=== PATIENT | female | born 2000 | race Caucasian/White ===

== ENCOUNTER 2020-06-24 10:39 | Outpatient (CLI) | payer OTHER, SELFPAY ==
--- NOTE | 2020-06-24 10:52 | CT_ITS ---
WS: [id number] CT scan of the abdomen and pelvis with Oral and IV contrast. Additional two-dimensional coronal and s agittal reconstruction was performed. 06/24/2020 Clinical Data: UNSPECIFIED ABDOMINAL PAIN, FEVER Comparison: None. DLP: 1110.[address] scans at [facility] use at least one of these dose optimization techniques: automat ed exposure control; mA and/or kV adjustment per patient size (includes targeted exams where dose is matched to clinical indication); or iterative reconstruction. Findings: The lower lungs show no nodules, masses or effusions. The liver, gallbladder, spleen, adrenal glands and pancreas are normal. The kidneys show equal bilateral contrast excretion with no cyst or masses. No renal calculi or hydro nephrosis is seen. The abdominal aorta is normal in size. No appendicitis or diverticulitis is seen. Oral contrast is in the stomach, that small bowel and colo n, and there is no bowel dilatation. No abscess, adenopathy, ascites, mass, obstruction or free air i s seen. The bladder is unremarkable. The uterus is normal. No inguinal hernia is seen. The bones of the lower thorax, lumbar spine, pelvis, and hips are normal. CT/CT abdomen pelvis w con* [id number] Impression: Negative CT scan of the abdomen and pelvis.
[2020-06-24] MEDS: iohexol 300 mg/mL 50 mL Btl PO (11:37)
[2020-06-24] MEDS: iohexol 300 mg/mL 100 mL Btl IV (12:45)
== END 2020-06-24 10:40 | disposition home or self-care (01) ==
LOC: RADWPI 10:45
PROVIDERS: PCP Internal Medicine; Visit Provider Nurse Practitioner Family
DX: R10.9 Unspecified abdominal pain (principal); Z87.19 Personal history of other diseases of the digestive system; R50.9 Fever, unspecified
CPT/HCPCS: 74177; Q9967